=== PATIENT | male | born 1975 | race Caucasian/White ===

== ENCOUNTER → 2019-12-27 | Emergency (ER) | payer BC | LOC: ER 17:34 | DX: R50.9 Fever, unspecified (principal); Z53.21 Procedure and treatment not carried out due to patient leaving prior to being seen by health care provider ==

== ENCOUNTER 2019-12-28 12:11 | Emergency (ER) | payer BC ==
[~2019-12-28] VITALS: Ht 188 cm; Wt 131.8 kg
[2019-12-28] MEDS ORDERED: ACETAMINOPHEN 500 MG TABLET PO ONE (12:45)
[2019-12-28 13:57] VITALS: BP 144/85
--- NOTE | 2019-12-28 14:49 | PHYS DOC ---
Past Medical History Past Medical History: Diabetes-Type II, Hypertension Past Surgical History: Tonsillectomy Smoking Status: Former Smoker Alcohol Use: Rarely Adult General Chief Complaint Chief Complaint: SHORTNESS OF BREATH HPI HPI Patient is a 44 year old male COVID positive who presents with continued body aches, fever 102.1 and shortness of breath. Patient reports shortness of breath with mild exertion. Patient has albuterol inhaler which he has not used. O2 saturations are greater than 92% on room air. Patient speaks in full sentences without conversational dyspnea and does not exhibit labored breathing when ambulatory. No other acute symptoms or complaints. [] Review of Systems Review of Systems ROS as per HPI All other systems were reviewed and found to be within normal limits, except as documented in this note. Current Medications Current Medications Current Medications Medications (Trade) Dose Ordered Sig/Catarina Start Time Stop Time Status Last Admin Dose Admin Acetaminophen (Tylenol) 1,000 mg 1X ONCE 12/28/19 12:45 12/28/19 12:46 DC 12/28/19 12:41 1,000 MG Allergies Allergies Allergies Coded Allergies Type Severity Reaction Last Updated Verified No Known Drug Allergies 12/28/19 No Physical Exam Physical Exam Constitutional: Well developed, well nourished, uncomfortable appearing. [] HENT: Normocephalic, atraumatic, bilateral external ears normal, oropharynx moist, nose normal. [] Eyes: PERRLA, EOMI, conjunctiva injected. [] Neck: Normal range of motion, no tenderness. [] Cardiovascular:Heart rate regular rhythm, no murmur [] Lungs & Thorax: Respirations, nonlabored, . [] Skin: Warm, dry [] Back: No tenderness () Extremities: No tenderness, no edema. [] Neurologic: Alert and oriented X 3, normal motor function, normal sensory function, no focal deficits noted. [] Psychologic: Affect normal, judgement normal, mood normal. [] Current Patient Data Vital Signs Vital Signs Date Time Temp Pulse Resp B/P (MAP) Pulse Ox O2 Delivery O2 Flow Rate FiO2 12/28/19 13:59 100.4 100.4 12/28/19 13:57 90 144/85 (104) 96 Room Air 12/28/19 12:19 21 EKG EKG [] Radiology/Procedures Radiology/Procedures [] Course & Med Decision Making Course & Med Decision Making Pertinent Labs and Imaging studies reviewed. (See chart for details) [No overt respiratory distress. Vital signs are stable. Tylenol given. Recommend supportive care with PCP follow-up. Return precautions reviewed.] Bolivar Disclaimer Bolivar Disclaimer This electronic medical record was generated, in whole or in part, using a voice recognition dictation system. Departure Departure Impression: Primary Impression: COVID-19 Additional Impression: Dyspnea Disposition: HOME, SELF-CARE Condition: STABLE Patient Instructions: Viral Syndrome Additional Instructions: Please use your albuterol inhaler and monitor your oxygen saturation. Return to the ED if oxygen saturation persistently lower than 90%. Problem Qualifiers KEVEN OLIVEIRA DO December 28, 2019 14:49
== END 2019-12-28 14:01 | disposition home or self-care (01) ==
LOC: ER 12:11
DX: U07.1 COVID-19 (principal); R06.02 Shortness of breath; I10 Essential (primary) hypertension; E11.9 Type 2 diabetes mellitus without complications; Z87.891 Personal history of nicotine dependence
CPT/HCPCS: 99285-25

== ENCOUNTER → 2020-04-15 | Outpatient (CLI) | payer BC ==
--- NOTE | 2020-04-16 07:55 | CARD ---
MR#: [id number] Date of Study: 04/15/2020 Ordering Physician: JILLIAN GREER, Referring Physician: JILLIAN GREER, Tech: Nimisha Vivas APPROVED REPORT EXAM: Two-dimensional and M-mode echocardiogram with Doppler and color Doppler. Other Information Quality : AverageHR: 88bpm INDICATION Dyspnea RISK FACTORS Hypertension Hyperlipidemia Diabetes 2D DIMENSIONS Left Atrium(2D)3.3 (1.6-4.0cm)IVSd0.9 (0.7-1.1cm) Aortic Root(2D)3.0 (2.0-3.7cm)LVDd5.1 (3.9-5.9cm) LVOT Diameter2.1 (1.8-2.4cm)PWd1.0 (0.7-1.1cm) LVDs3.2 (2.5-4.0cm)FS (%) 37.4 % SV84.8 mlLVEF(%)67.1 (>50%) Aortic Valve AoV Peak Sheng.164.1cm/sAoV VTI29.9cm AO Peak GR.10.8mmHgLVOT VTI 25.17cm AO Mean GR.6mmHg Mitral Valve MV E Twiraawz10.0cm/sMV E Peak Gr.3mmHg MV DECEL [id number] A Pcperwbi56.6cm/s MV E Mean Gr.2mmHgE/A Ratio1.6 TDI Lateral E' P. V8.50cm/sMedial E' P. V9.07cm/s E/Lateral E'10.0E/Medial E'9.4 Tricuspid Valve TR P. Ocsngrap985sx/sRAP [id number] TR Peak Gr.11zgCyXSGY42tbDv Pulmonary Vein S1 Xsnggnjt13.0cm/sS2 Zlhbxpsk55.47cm/s D2 Qtuwtopq23.5cm/sPVa smhfieej62pmup LEFT VENTRICLE The left ventricle is normal size. There is normal left ventricular wall thickness. The left ventricu lar systolic function is normal. The Ejection Fraction is 55%. There is normal LV segmental wall liz on. RIGHT VENTRICLE The right ventricle is normal size. There is normal right ventricular wall thickness. The right ventr icular systolic function is normal. ATRIA The left atrium size is normal. The right atrium size is normal. The interatrial septum is intact wit h no evidence for an atrial septal defect or patent foramen ovale as noted on 2-D or Doppler imaging. AORTIC VALVE The aortic valve is normal in structure and function. Doppler and Color Flow revealed no significant aortic regurgitation. There is no significant aortic valvular stenosis. Calculated aortic valve area is 3.03 cm2 with maximum pressure gradient of 11 mmHg and mean pressure gradient of 6 mmHg. MITRAL VALVE The mitral valve is normal in structure and function. There is no evidence of mitral valve prolapse. There is no mitral valve stenosis. Doppler and Color Flow revealed no mitral valve regurgitation note d. TRICUSPID VALVE The tricuspid valve is normal in structure and function. Doppler and Color Flow revealed trace tricus pid regurgitation with an estimated PAP of 34 mmHg. There is no tricuspid valve stenosis. PULMONIC VALVE The pulmonic valve is not well visualized. Doppler and Color Flow revealed no pulmonic valvular regur gitation. GREAT VESSELS The aortic root is normal in size. The ascending aorta is normal in size. The IVC is normal in size a nd collapses >50% with inspiration. PERICARDIAL EFFUSION There is no evidence of significant pericardial effusion. Critical Notification Critical Value: No <Conclusion> The left ventricular systolic function is normal. The Ejection Fraction is 55%. There is normal LV segmental wall motion. Trace tricuspid regurgitation with an estimated PAP of 34 mmHg. There is no evidence of significant pericardial effusion. Signed by : Cole Ojeda, Electronically Approved : 04/16/2020 07:55:13
== END | disposition home or self-care (01) ==
LOC: ECHO 14:23
PROVIDERS: ATTEND Internal Medicine Pulmonary Disease
DX: R06.00 Dyspnea, unspecified (principal)
CPT/HCPCS: 93306

== ENCOUNTER → 2020-04-19 | Outpatient (CLI) | payer BC ==
[~2020-04-19] MED LIST: IOHEXOL 350 MG/ML 100 ML VIAL. IV ONE
[2020-04-19 09:25] LABS: GFR 81.2
--- NOTE | 2020-04-19 10:06 | RAD ---
CT ANGIOGRAPHY CHEST INDICATION: dyspnea s/p covid Comparison: None. TECHNIQUE: Following the uneventful administration of intravenous contrast, 100 cc Omnipaque 350, axial CT sections were obtained through the lungs and upper abdomen. Multiplanar reconstructions and MIP images were obtained. PQRS compliance statement: One or more of the following individualized dose reduction techniques were utilized for this examination: 1. Automated exposure control 2. Adjustment of the mA and/or kV according to patient size 3. Use of iterative reconstruction technique FINDINGS: Pulmonary arteries: No evidence of pulmonary thromboembolic disease Lungs and Airways: No pulmonary mass or consolidation. No abnormality of the central airways. Pleura: The pleural spaces are normal. Heart and Mediastinum: The visualized thyroid is normal in size and attenuation. No axillary or supraclavicular lymphadenopathy. No mediastinal, hilar or retrocrural lymphadenopathy. Normal cardiac size. No pericardial effusion. Coronary artery atherosclerotic disease. The great vessels of the thorax are normal. Abdomen: Limited images through the upper abdomen show no abnormality of the visualized organs. Bones and Soft Tissues: The visualized bones and chest wall soft tissues are within normal limits. IMPRESSION: 1. No evidence of pulmonary thromboembolic disease. 2. No pulmonary mass or consolidation. 3. Coronary artery atherosclerotic disease. Electronically signed by: Richard Fierro MD (04/19/2020 10:04 AM) [id number]
== END | disposition home or self-care (01) ==
LOC: CT 08:47
PROVIDERS: ATTEND Internal Medicine Pulmonary Disease
DX: I25.10 Atherosclerotic heart disease of native coronary artery without angina pectoris (principal); R06.00 Dyspnea, unspecified; R93.89 Abnormal findings on diagnostic imaging of other specified body structures
CPT/HCPCS: 36415; 71275; 82565; 84520; Q9967

== ENCOUNTER → 2020-05-15 | Outpatient (CLI) | payer BC | END | disposition home or self-care (01) | LOC: RT 07:58 | PROVIDERS: ATTEND Internal Medicine Pulmonary Disease | DX: G47.33 Obstructive sleep apnea (adult) (pediatric) (principal); R06.00 Dyspnea, unspecified | CPT/HCPCS: G0399 ==

== ENCOUNTER 2020-08-03 09:39 | Emergency (ER) | payer BC ==
[~2020-08-03] VITALS: Ht 188 cm; Wt 134.0 kg
--- NOTE | 2020-08-03 10:57 | PHYS DOC ---
Past Medical History Past Medical History: Diabetes-Type II, High Cholesterol, Hypertension Additional Past Medical Histor: COVID + 01/09 Past Surgical History: Tonsillectomy Smoking Status: Former Smoker Alcohol Use: Rarely Drug Use: None General Adult EDM: Chief Complaint: DIARRHEA HPI: HPI: Patient is a 45 year old male who presents with diarrhea of 2 weeks duration. The past 2 weeks he has been having 5 or more bouts of diarrhea a day that is light brown in color. Denies bright red blood or black, tarry stools. He thinks it may be due to his diet or Metformin. He abstained from taking his Metformin yesterday and "was doing fine" until 5pm yesterday when the diarrhea started again. He has trying to push fluids at home with no improvement in symptoms. He went to urgent care earlier this morning and where the provider was concerned for diverticulitis and sent him here to [facility]. He denies nausea, vomiting, focal weakness, or abdominal pain. He developed a chest cold for the past 2 to 3 days with some congestion and cough. He was positive for Covid back in December 2019. Review of Systems: Review of Systems: Constitutional: Denies fever or chills. Eyes: Denies redness or eye pain. HENT: Denies nasal congestion or sore throat Respiratory: +Cough, + congestion. Denies shortness of breath. Cardiovascular: Denies chest pain or palpitations GI: +Diarrhea. Denies abdominal pain, nausea, or vomiting : Denies dysuria or hematuria Musculoskeletal: Denies back pain or joint pain Integument: Denies rash or skin lesions Neurologic: Denies headache, focal weakness or sensory changes Complete systems were reviewed and found to be within normal limits, except as documented in this note. Family History: Family History: Non-contributory. Current Medications: Current Medications Medications (Trade) Dose Ordered Sig/Catarina Start Time Stop Time Status Last Admin Dose Admin Famotidine (Pepcid Vial) 20 mg 1X ONCE 08/03/20 11:00 08/03/20 11:01 UNV Sodium Chloride 1,000 ml @ 1,000 mls/hr 1X ONCE 08/03/20 11:00 08/03/20 11:59 UNV Allergies: Allergies: Allergies Coded Allergies Type Severity Reaction Last Updated Verified No Known Drug Allergies 12/28/19 No Physical Exam: PE: Constitutional: Well developed, well nourished, no acute distress, non-toxic appearance HENT: Normocephalic, atraumatic Eyes: PERRL, EOMI, conjunctiva normal, no discharge Neck: Normal range of motion, no tenderness, supple Lungs & Thorax: No respiratory distress, equal chest rise and fall Abdomen: protuberant belly, Soft, mild tenderness to palpation of RLQ that radiates to LLQ Skin: Warm, dry, no erythema, no rash Back: No tenderness, no CVA tenderness Extremities: No tenderness, ROM intact, no edema Neurologic: Alert and oriented X 3, normal motor function, normal sensory function, no focal deficits noted Psychologic: Affect normal, judgment normal Current Patient Data: Vital Signs: Vital Signs Date Time Temp Pulse Resp B/P (MAP) Pulse Ox O2 Delivery O2 Flow Rate FiO2 08/03/20 10:15 98.2 80 15 145/75 (98) 96 Room Air 98.2 Radiology/Procedures: Radiology/Procedures: PROCEDURE: CT ABD PELV W/ IV CONTRST ONLY Exam: CT abdomen/pelvis with intravenous contrast Indication: Lower abdominal pain, diarrhea Comparison: None Technique: Helical CT imaging performed of the abdomen and pelvis after the administration of 75 mL Omnipaque 300 intravenous contrast. Sagittal and coronal reformats were obtained. One or more of the following individualized dose reduction techniques were utilized for this examination: 1. Automated exposure control 2. Adjustment of the mA and/or kV according to patient size 3. Use of iterative reconstruction technique. Findings: Lower chest: Lung bases are clear. Heart is normal in size. Liver: Liver is enlarged measuring 24 cm in length and decreased in attenuation. No focal liver lesion. Gallbladder/Biliary Tree: Normal. Pancreas: Normal. Spleen: The spleen is mildly enlarged measuring 14.5 cm. Adrenal Glands: Normal. Kidneys/Ureters/Bladder: Normal. Reproductive Organs: Prostate gland is normal. Stomach, small bowel, and colon: Stomach and small bowel are normal. There are scattered colonic diverticula. No acute diverticulitis. The appendix is normal. Vasculature: Abdominal aorta and inferior vena cava are normal. Lymph Nodes: No lymphadenopathy. Peritoneum and retroperitoneum: No free fluid or free air. Bones: No acute osseous abnormality. Mild degenerative disc disease in the lower thoracic and upper lumbar spine. Impression: 1. Hepatomegaly and hepatic steatosis. 2. Mild splenomegaly. 3. Scattered colonic diverticula without acute diverticulitis. Electronically signed by: Paola Nelson MD (08/03/2020 1:10 PM) [id number] Course & Med Decision Making: Course & Med Decision Making Pertinent Labs and Imaging studies reviewed. (See chart for details) Mr. Rich is a 45 year old male who presents with 2 weeks of diarrhea. He has been going 5+ times a day, with no improvement. Physical exam significant for mild RLQ tenderness that radiates to LLQ. Differentials include diverticulitis vs gastroenteritis vs early appendicitis. CT abdomen reveals scattered diverticula but negative for signs of acute diverticulitis or other acute abnormalities. CBC, CMP unremarkable. UA collected and sent but low concern for UTI from history. Patient stable for discharge home with outpatient follow-up with PCP/GI. GI referral provided.. Discussed findings and plan with patient, who acknowledges understanding and agreement. oBlivar Disclaimer: Bolivar Disclaimer: This electronic medical record was generated, in whole or in part, using a voice recognition dictation system. Departure Departure Impression: Primary Impression: Diarrhea Qualified Codes: R19.7 - Diarrhea, unspecified Disposition: 01 DC HOME SELF CARE/HOMELESS Condition: STABLE Referrals: SUSAN GHOSH MD (PCP) HUGO ADAMS MD Patient Instructions: Diarrhea, [id number], Diet for Diarrhea, Adult Additional Instructions: Increase fluid hydration. Keep diet bland. Increase diet to include foods that naturally form the stool together (BRAT diet: bananas, rice, applesauce, toast) IDALMIS QUEVEDO DO Aug 03, 2020 10:57
[2020-08-03] MEDS ORDERED: IV NORMAL SALINE 1000ML BAG 1,000 ML IV ONE (11:00)
[2020-08-03] MEDS ORDERED: FAMOTIDINE 20 MG/2 ML VIAL IVP ONE (11:00)
[2020-08-03 11:11] LABS: BASO # 0.1 x10^3/uL (0.0-0.2); BASO % 1 % (0-3); EOS # 0.2 x10^3/uL (0.0-0.7); EOS % 2 % (0-3); HEMATOCRIT 46.7 % (39.0-53.0); HEMOGLOBIN 16.2 g/dL (13.0-17.5); LYMPH # 2.2 x10^3/uL (1.0-4.8); LYMPH % 27 % (24-48); MEAN CORPUSCULAR HEMOGLOBIN 30 pg (25-35); MEAN CORPUSCULAR HGB CONC 35 g/dL (31-37); MEAN CORPUSCULAR VOLUME 88 fL (79-100); MONO # 0.8 x10^3/uL (0.0-1.1); MONO % 10 % (0-9); NEUT # 5.1 x10^3/uL (1.8-7.7); NEUT % 61 % (31-73); PLATELET COUNT 253 x10^3/uL (140-400); RED BLOOD COUNT 5.31 x10^6/uL (4.30-5.70); RED CELL DISTRIBUTION WIDTH 13.5 % (11.5-14.5); WHITE BLOOD COUNT 8.3 x10^3/uL (4.0-11.0)
[2020-08-03 11:41] LABS: CALCIUM 8.9 mg/dL (8.5-10.1); CREATININE 0.8 mg/dL (0.7-1.3); GFR 104.5; POTASSIUM 4.1 mmol/L (3.5-5.1)
[2020-08-03 11:46] LABS: ALBUMIN/GLOBULIN RATIO 1.1 (1.0-1.7); TOTAL BILIRUBIN 0.4 mg/dL (0.2-1.0); TOTAL PROTEIN 7.5 g/dL (6.4-8.2)
[2020-08-03] MEDS ORDERED: IOHEXOL 300 MG/ML 100ML VIAL. IV ONE (12:00)
--- NOTE | 2020-08-03 13:13 | RAD ---
Exam: CT abdomen/pelvis with intravenous contrast Indication: Lower abdominal pain, diarrhea Comparison: None Technique: Helical CT imaging performed of the abdomen and pelvis after the administration of 75 mL O mnipaque 300 intravenous contrast. Sagittal and coronal reformats were obtained. One or more of the following individualized dose reduction techniques were utilized for this examinat ion: 1. Automated exposure control 2. Adjustment of the mA and/or kV according to patient size 3. Use of iterative reconstruction technique. Findings: Lower chest: Lung bases are clear. Heart is normal in size. Liver: Liver is enlarged measuring 24 cm in length and decreased in attenuation. No focal liver lesio n. Gallbladder/Biliary Tree: Normal. Pancreas: Normal. Spleen: The spleen is mildly enlarged measuring 14.5 cm. Adrenal Glands: Normal. Kidneys/Ureters/Bladder: Normal. Reproductive Organs: Prostate gland is normal. Stomach, small bowel, and colon: Stomach and small bowel are normal. There are scattered colonic dive rticula. No acute diverticulitis. The appendix is normal. Vasculature: Abdominal aorta and inferior vena cava are normal. Lymph Nodes: No lymphadenopathy. Peritoneum and retroperitoneum: No free fluid or free air. Bones: No acute osseous abnormality. Mild degenerative disc disease in the lower thoracic and upper l umbar spine. Impression: 1. Hepatomegaly and hepatic steatosis. 2. Mild splenomegaly. 3. Scattered colonic diverticula without acute diverticulitis. Electronically signed by: Paola Nelson MD (08/03/2020 1:10 PM) [id number]
[2020-08-03 13:57] VITALS: BP 127/76
[2020-08-03 15:17] LABS: BILIRUBIN,URINE NEGATIVE (NEG); CLARITY,URINE CLEAR; COLOR,URINE YELLOW; NITRITE,URINE NEGATIVE (NEG); PROTEIN,URINE NEGATIVE (NEG-TRACE); UROBILINOGEN,URINE 0.2 mg/dL (0.2 mg/dL)
[2020-08-03 15:27] LABS: BACTERIA,URINE 0 /HPF (0-FEW); RBC,URINE 0 /HPF (0-2); WBC,URINE 0 /HPF (0-4)
== END 2020-08-03 15:20 | disposition home or self-care (01) ==
LOC: ER 09:39
DX: R19.7 Diarrhea, unspecified (principal); R09.81 Nasal congestion; R05 Cough; E11.9 Type 2 diabetes mellitus without complications; E78.00 Pure hypercholesterolemia, unspecified; I10 Essential (primary) hypertension; Z90.89 Acquired absence of other organs; Z87.891 Personal history of nicotine dependence
CPT/HCPCS: 36415; 74177; 80053; 81001; 83605; 83690; 85025; 96361; 96374; 99285; J3490; J7030; Q9967